=== PATIENT | female | born 1965 | race Caucasian/White ===

== ENCOUNTER → 2023-10-11 09:19 | Outpatient (REF) | payer OTHER, SELFPAY | LOC: HWWDC 09:19 | PROVIDERS: ATTENDING PHYSICIAN Obstetrics & Gynecology Gynecology; FAMILY PHYSICIAN Nurse Practitioner Adult Health | DX: Z12.31 Encounter for screening mammogram for malignant neoplasm of breast (principal) | CPT/HCPCS: 77063; 77067 ==

== ENCOUNTER 2023-10-29 18:19 | Emergency (ER) | payer OTHER, SELFPAY ==
[2023-10-29 18:21] VITALS: BP 220/112
[2023-10-29 19:00] VITALS: BP 166/94
--- NOTE | 2023-10-29 19:04 | ED.GENMED ---
History of Present Illness
<Taya Coughlin PA-C - Last Filed: 10/30/23 00:10>
General
Chief Complaint: Blood Pressure Problem
Source: patient
Exam Limitations: none
Time Seen by Provider: 10/29/23 18:31
Nursing documentation reviewed up to this point in time: agreed with
Travel History
Have you had any contact with someone who has COVID-19?: No
Do you have any symptoms of coronavirus? Fever > 100 degrees, chills, cough, shortness of breath, sore throat, loss of taste or smell, muscle aches, or headache?: No
History of Present Illness
History of Present Illness:
Patient is a 58-year-old female with history hypertension, hyperlipidemia, hypothyroid presenting for evaluation of elevated blood pressure readings at home. Patient states that she regularly checks her blood pressure once daily at home. She
noticed that earlier this week her blood pressure readings are beginning to climb gradually into the 130s/ 90s. Both yesterday and today her blood was elevated into the 170s�180s over 100s. She denies any associated chest pain, shortness of
breath, back pain, headache, visual changes, dizziness, weakness. Patient takes metoprolol ER 50 mg once daily. She had also been on losartan, in addition, in the past but was discontinued due to low blood pressure. Blood pressure medications are
managed by patient's primary care provider.
Patient does note some increased life stressors over the past few months which may be contributing to elevations in blood pressure.
Patient has been seen by cardiology in the past. She has had multiple negative stress tests, echocardiograms, and has worn a Holter monitor in the past.
Past History
<Taya Coughlin PA-C - Last Filed: 10/30/23 00:10>
Past History
ED Past Medical History: HTN, Hypercholesterolemia and Hypothyroidism
ED Past Surgical History: Cholecystectomy
Social History
Tobacco: Non-smoker
Alcohol: None
Drug: None
Family History
Family History: CAD; Negative Early CAD
Phy Exam
<Taya Coughlin PA-C - Last Filed: 10/30/23 00:10>
Physical Exam
Physical Exam:
General: In no apparent distress, nontoxic
Vitals: Hypertensive, otherwise vital signs stable
HEENT: Atraumatic, normocephalic; pupils equal round and reactive to light bilaterally, extraocular muscles intact, protecting airway, uvula midline
Neck: appears supple, no JVD, no no meningeal signs
CV: Regular rate and rhythm, heart sounds normal, no evidence of cyanosis
Resp: No evidence of respiratory distress, lungs clear bilaterally without any rales, wheezing, or rhonchi
Abd: Non-distended
Extremities: No deformities, no evidence of cyanosis or edema; DP and radial pulses palpable and equal bilaterally
Neuro: alert and oriented x [address], speech normal, no focal motor deficits, sensation fully intact, normal finger-nose, cranial nerves II through XII intact bilaterally
Psych: Normal affect
Skin: Intact, no rashes
Course
<Taya Coughlin PA-C - Last Filed: 10/30/23 00:10>
Orders/Labs/Results
Orders:
Orders
10/29/23 19:05
Electrocardiogram (*1) Urgent
Reason for Study: Hypertension, Benign
EKG- Treatment ONCE
10/29/23 19:32
Complete Blood Count/With Diff Urgent
Comprehensive Metabolic Panel Urgent
TSH Reflex To Free T4 Urgent
10/29/23 21:11
Lorazepam [Ativan] 0.5 mg PO NOW STA
Abnormal Lab Results
10/29/23
19:32
Glucose 102 H mg/dl
(70-99)
Total Protein 8.8 H g/dl
(6.3-8.2)
10/29/23 19:32
10/29/23 19:32
Vital Signs
Blood pressure: 166/98
Initial and Last Documented VS:
Initial Vital Signs
Temp Pulse Resp BP Pulse Ox
98.6 F 87 16 220/112 99
10/29/23 18:21 10/29/23 18:21 10/29/23 18:21 10/29/23 18:21 10/29/23 18:21
Last Documented Vital Signs
Temp Pulse Resp BP Pulse Ox
98.6 F 79 18 166/90 97
10/29/23 18:21 10/29/23 22:00 10/29/23 20:00 10/29/23 22:00 10/29/23 20:00
<Cory Maza, DO - Last Filed: 10/29/23 21:13>
Orders/Labs/Results
Orders:
Orders
10/29/23 19:05
Electrocardiogram (*1) Urgent
Reason for Study: Hypertension, Benign
EKG- Treatment ONCE
10/29/23 19:32
Complete Blood Count/With Diff Urgent
Comprehensive Metabolic Panel Urgent
TSH Reflex To Free T4 Urgent
10/29/23 21:11
Lorazepam [Ativan] 0.5 mg PO NOW STA
Abnormal Lab Results
10/29/23
19:32
Glucose 102 H mg/dl
(70-99)
Total Protein 8.8 H g/dl
(6.3-8.2)
10/29/23 19:32
10/29/23 19:32
Vital Signs
Initial and Last Documented VS:
Initial Vital Signs
Temp Pulse Resp BP Pulse Ox
98.6 F 87 16 220/112 99
10/29/23 18:21 10/29/23 18:21 10/29/23 18:21 10/29/23 18:21 10/29/23 18:21
Last Documented Vital Signs
Temp Pulse Resp BP Pulse Ox
98.6 F 79 18 166/90 97
10/29/23 18:21 10/29/23 22:00 10/29/23 20:00 10/29/23 22:00 10/29/23 20:00
<Taya Coughlin PA-C - Last Filed: 10/30/23 00:10>
MDM/Problems Addressed
Differential Diagnosis Includes:
Asymptomatic hypertension, hypertensive urgency, hypertensive emergency, hypothyroid, etc.
MDM/Problems Addressed:
Patient is a 58-year-old female with history hypertension presenting for evaluation of high blood pressure readings at home. She is asymptomatic at this time. Blood pressure obtained in triage very elevated to 220/112. On my initial evaluation
blood pressure is already decreased into 190s over low 100s. Otherwise vital signs are stable. Physical exam as documented above. Heart regular rate and rhythm, lungs clear bilaterally. No focal neurologic deficits. Will check basic labs,
thyroid, EKG.
Reviewed patient's blood pressure log which keeps at home. It does appear to be a somewhat acute change in blood pressure over the past week. Suspect this is likely due to life stressors. Will give 0.5 Ativan and reassess.
Labs reviewed. No clinically significant abnormalities. No evidence of endorgan damage. EKG shows no signs of ischemia.
On reassessment patient's blood pressure has decreased to 166/90. She remains asymptomatic at this time. Stable for discharge with close return precautions, primary care/cardiology follow-up. Will provide few tablets of p.o. Ativan to take as
needed for severe anxiety. Patient will call primary care for long-term anxiety management tomorrow and further blood pressure management. Patient comfortable with this plan. All questions and
Chronic conditions affecting care:
Hypertension
Acute Exacerbation and/or Progression of Chronic Illness:
Acutely hypertensive
<Taya Coughlin PA-C - Last Filed: 10/30/23 00:10>
*Pulse Oximetry
Patient hypoxic: no
*EKG
Interpreted by ED Provider?: Yes
EKG Intrepretation Date: 10/30/23
Interpretation: abnormal
Comparison EKG: no changes
Heart Rate: 83
Rate: normal
Rhythm: sinus arrhythmia
Ischemia: no ischemia
*Critical Care Note
Total Time (30-74mins, 75-104mins- exclusive of procedures): Not Applicable
ED Attending Note
<Taya Coughlin PA-C - Last Filed: 10/30/23 00:10>
-
Portions of this chart may have been created with voice recognition software.� Occasional wrong word or��sound alike� substitutions may have occurred due to the inherent limitations of voice recognition software.
<Cory Maza DO - Last Filed: 10/29/23 21:13>
ED Attending Note
Patient seen and examined by attending physician: Yes
I performed the substantive portion of visit, reviewed & personally made and approve the management plan that is documented in note by myself or VIKKI.: Yes
ED Attending Note:
Seen with LUISITO examined independently 58-year-old female history of hypertension previously on losartan and metoprolol losartan was stopped about 6 months ago due to hypotension also on Synthroid, presents for evaluation of elevated blood pressure she
has had some stress in her life related to spousal illness and illness of her dogs, suspect this is driving her high blood pressure, has not had back another agent she has no endorgan damage, no chest pain or shortness of breath no headache will try
a short course of lorazepam to see if that helps her she seems amenable to that approach
Discharge Plan
Departure
Patient Disposition: Home (Routine Discharge)
Date of Disposition: 10/29/23
Time of Disposition: 22:29
Patient with high blood pressure during this ER visit?: Yes
Condition: Good
Covid-19: Not Applicable
Discharge Problem:
Asymptomatic hypertension
Instructions: High Blood Pressure (DC), High blood pressure emergencies, BLOOD PRESSURE
Prescriptions:
New
lorazepam 0.5 mg tablet
0.5 mg PO HS PRN (Reason: anxiety) Qty: 7 0RF
No Action
levothyroxine 112 MCG tablet
112 mcg PO DAILY
rosuvastatin 10 MG tablet
10 mg PO QPM
metoprolol tartrate 25 MG tablet
12.5 mg PO QPM
Co Q-10
1 tab PO QPM
Referrals:
Aishwarya Song CRNP [Family Provider] - Tomorrow
Activity Restrictions/Additional Instructions:
- Return to the emergency department any severe headache, chest pain, shortness of breath, severe back pain, visual changes, confusion, numbness/dizziness/weakness, intractable vomiting, worsening in current symptoms, or any other concerns
-You should continue to take your medications as prescribed.
-As discussed�you should follow-up with your primary care provider or her further management of chronic anxiety. You can take the lorazepam as needed before bed for severe anxiety. This may cause drowsiness. Do not take prior to driving.
-You should continue to take your blood pressure once daily. Contact your primary care with any readings greater than 180/120. Follow-up with your primary care for further evaluation/management of hypertension
Interventions
Interventions:
*Risk Screen - Suicide Last Done: 10/29/23 19:24
*General Assessment Last Done: 10/29/23 19:24
*Neglect/Abuse Screening Last Done: 10/29/23 19:38
ED- Fall Risk Assessment Last Done: 10/29/23 19:25
*ED COVID-19 Vaccine History Last Done: 10/29/23 19:23
*Nursing Disposition Last Done: 10/29/23 22:38
ED- Cardiac Assessment Last Done: 10/29/23 19:25
ED- Neurological Assessment Last Done: 10/29/23 19:25
ED- Pulmonary Assessment Last Done: 10/29/23 19:25
Discharge Date and Time
Discharge Date/Time: 10/29/23 22:40
Print Language: KOREAN
[2023-10-29 19:39] LABS: % Basophils 0.6 % (0-2); % Eosinophils 1.8 % (0-6); % Immature Granulocytes 0.3 % (0-0.5); % Lymphocytes 34.4 % (20.5-51.1); % Monocytes 5.4 % (1.7-9.3); % Neutrophils 57.5 % (42.2-75.2); Absolute Eosinophils 0.1 10^3/uL (0-0.7); Absolute Lymphocytes 2.3 10^3/uL (1.2-3.4); Absolute Monocytes 0.4 10^3/uL (0.1-0.6); Absolute Neutrophils 3.8 10^3/uL (1.4-6.5); Hemoglobin 14.1 g/dL (12.0-16.0); Mean Corp Hgb Conc. 34.4 g/dL (33.0-37.0); Mean Corpuscular Hgb 28.7 pg (27.0-31.0); Mean Corpuscular Volume 83.5 fL (81.0-99.0); Mean Platelet Volume 9.8 fL (7.4-10.4); Nucleated Red Blood Cells % 0 %; Platelet Count 211 10^3/uL (130-400); Red Blood Cell Count 4.91 10^6/uL (4.20-5.40); Red Cell Dist. Width 12.7 % (11.5-14.5); White Blood Cell Count 6.6 10^3/uL (4.8-10.8)
[2023-10-29 19:51] LABS: ALT (SGPT) 34 U/L (0-35); AST (SGOT) 32 U/L (14-36); Alkaline Phosphatase 101 U/L (38-126); Blood Urea Nitrogen 11 mg/dl (7-17); Calcium 10.2 mg/dl (8.4-10.2); Carbon Dioxide 26 mmol/L (22-30); Chloride 107 mmol/L (98-107); Glucose 102 mg/dl (70-99); Potassium 4.2 mmol/L (3.5-5.1); Sodium 139 mmol/L (135-145); Total Bilirubin 0.6 mg/dl (0.2-1.3); Total Protein 8.8 g/dl (6.3-8.2); eGFR > 60.00
[2023-10-29 20:00] VITALS: BP 170/97
[2023-10-29 20:22] LABS: TSH Reflex To Free T4 0.57 uIU/ml (0.47-4.68)
[2023-10-29 20:48] VITALS: BP 159/104
[2023-10-29 21:00] VITALS: BP 167/101
[2023-10-29] MEDS: ATIVAN 0.5 MG PO (21:16)
[2023-10-29 22:00] VITALS: BP 166/90
== END 2023-10-29 22:40 | disposition home or self-care (01) ==
LOC: EMR 18:19
PROVIDERS: Physician Assistant; EMERGENCY PHYSICIAN Emergency Medicine; FAMILY PHYSICIAN Nurse Practitioner Adult Health
DX: I10 Essential (primary) hypertension (principal); E78.00 Pure hypercholesterolemia, unspecified; E03.9 Hypothyroidism, unspecified; Z79.899 Other long term (current) drug therapy; Z90.49 Acquired absence of other specified parts of digestive tract; Z88.1 Allergy status to other antibiotic agents; Z88.0 Allergy status to penicillin
CPT/HCPCS: 99283; 80053; 84443; 85025; 93005

== ENCOUNTER → 2023-11-07 08:48 | Outpatient (REF) | payer OTHER, SELFPAY | LOC: HWRAD 08:48 | PROVIDERS: ATTENDING PHYSICIAN Obstetrics & Gynecology Gynecology; FAMILY PHYSICIAN Nurse Practitioner Adult Health | DX: N95.0 Postmenopausal bleeding (principal) | CPT/HCPCS: 76830; 76856 ==

== ENCOUNTER → 2023-11-17 10:25 | Outpatient (REF) | payer OTHER, SELFPAY | LOC: HWRAD 10:25 | PROVIDERS: ATTENDING PHYSICIAN Nurse Practitioner Adult Health | DX: M79.645 Pain in left finger(s) (principal) | CPT/HCPCS: 73140 ==